=== PATIENT | male | born 1985 | race Caucasian/White ===

== ENCOUNTER 2021-10-18 21:58 | Emergency (ER) | payer OTHER, SELFPAY ==
[2021-10-18 22:00] VITALS: BP 135/96; PULSE 97; RESP 20; TEMP 37.6; O2SAT 97
--- NOTE | 2021-10-18 22:04 | PC.NURSE ---
patient mother and came up to this feature writer and stated that they patient took dayquil and began drinking. When they questioned the patient he stated he did so in an attempt to harm himself. This feature writer asked patient if this occurred today and he began crying and stated it did happen. employment programs analyst is with patient at this time and supercharger repair supervisor was made aware.
--- NOTE | 2021-10-18 22:24 | PC.NURSE ---
Anay Currie- [phone], mother Nizta [phone], girlfriend
[2021-10-18 22:36] LABS: Basophils Percent Auto 0.9 % (0.2-1.2); Eosinophils Absolute Auto 0.2 K/mm3 (0-0.3); Eosinophils Percent Auto 4.3 % (0-4.4); Hematocrit 47.8 % (42.0-52.0); Hemoglobin 15.8 g/dL (14.0-18.0); Immature Granulocyte Absolute 0.01 K/mm3 (0.00-0.031); Immature Granulocyte Percent A 0.2 % (0-0.5); Lymphocytes Absolute Auto 1.57 K/mm3 (0.9-3.2); Lymphocytes Percent Auto 35.4 % (18.3-44.2); Mean Corpuscular HGB Conc 33.1 g/dl (32-36); Mean Corpuscular Hemoglobin 29.7 pg (26-34); Mean Corpuscular Volume 89.8 fl (80-100); Mean Platelet Volume 9.3 fl (7.4-10.4); Monocytes Absolute Auto 0.3 K/mm3 (0.1-0.6); Monocytes Percent Auto 7.4 % (2.6-8.5); Neutrophils Absolute Auto 2.3 K/mm3 (1.3-6.7); Neutrophils Percent Auto 51.8 % (45.5-73.1); Platelet Count Result 289 k/mm3 (150-375); Red Blood Count 5.32 M/mm3 (4.6-6.20); Red Cell Distribution Width 12.4 % (11.5-14.5); White Blood Count 4.4 K/mm3 (4.5-10.0)
[2021-10-18 22:55] LABS: Alanine Aminotransferase 20 U/L (4-50); Alkaline Phosphatase 55 U/L (38-126); Anion Gap 10 mmol/L (8-16); Aspartate Amino Transferase 30 U/L (17-59); Bilirubin,Total 0.3 mg/dL (0.2-1.3); Blood Urea Nitrogen 11 mg/dL (9-20); Calcium 9.2 mg/dL (8.4-10.2); Carbon Dioxide 27 mmol/L (22-30); Chloride 108 mmol/L (98-107); Estimated CRCL calculation 130 ml/min; Estimated Glomerular Filt Rate > 60; Glucose 96 mg/dL (65-110); Sodium 145 mmol/L (137-145)
[2021-10-18 22:56] LABS: Ethanol 163 mg/dL (<10)
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
[2021-10-18 23:13] LABS: SARS-CoV-2 RNA PCR Negative
[2021-10-18 23:28] LABS: Appearance Urine Clear (Clear); Bilirubin Urine Negative (Negative); Blood Urine Negative (Negative); Color Urine Yellow (Yellow); Glucose Urine UA Negative (Negative); Ketones Urine Negative (Negative); Leukocyte Esterase Ur Negative LEU/UL (Negative); Nitrate Urine Negative (Negative); Protein Urine Negative (Negative); Specific Grav Ur 1.025 (1.001-1.035); Urobilinogen Urine 0.2 mg/dL (<2.0); pH Urine 5.5 (5.0-9.0)
[2021-10-18 23:36] LABS: Mucus Urine Moderate /lpf; RBC Urine 0-2 /hpf (0-2); Squamous Epithelial Cell Urine Rare /hpf (Few); WBC Urine 0-3 /hpf
[2021-10-18 23:38] LABS: Add Urine Microscopic? YES
[2021-10-18 23:44] LABS: Amphetamine Screen Urine Negative (Negative); Barbiturate Screen Urine Negative (Negative); Benzodiazepines Screen Urine Negative (Negative); Cannabinoid Screen Urine Positive (Negative); Cocaine Screen Urine Negative (Negative); Methadone Screen Urine Negative (Negative); Opiate Screen Urine Negative (Negative); Phencyclidine Screen Urine Negative (Negative)
[2021-10-19 01:17] VITALS: PULSE 87; RESP 20
[2021-10-19 01:27] VITALS: PULSE 91; RESP 20
[2021-10-19 06:09] VITALS: BP 140/75; PULSE 95; RESP 18; O2SAT 100
== END 2021-10-19 06:12 | disposition home or self-care (01) ==
PROVIDERS: Emergency Provider Emergency Medicine
DX: F33.1 Major depressive disorder, recurrent, moderate (principal); F10.129 Alcohol abuse with intoxication, unspecified; Z20.822 Contact with and (suspected) exposure to COVID-19; Y90.6 Blood alcohol level of 120-199 mg/100 ml
CPT/HCPCS: 36415; 80053; 80307; 81001; 84443; 85025; 94640; 99283; C9803; U0003; U0005

== ENCOUNTER 2023-12-28 15:02 | Emergency (ER) | payer BC, SELFPAY ==
[2023-12-28 15:11] VITALS: BP 155/104; PULSE 95; RESP 18; TEMP 36.8; O2SAT 100
--- NOTE | 2023-12-28 15:16 | ED.LOWEXIN ---
HPI - Extremity Injury (Lower) General Chief Complaint: Extremity Injury, Lower Stated Complaint: Left Foot Injury History of Present Illness HPI Narrative: Patient presents with left great toe pain swelling and tenderness. Patient denies any injury states he has been getting worse over the last 3 days. Patient states he has had increase in acidic foods and increase in beer both the last week. Related Data Allergies Allergy/AdvReac Type Severity Reaction Status Date / Time No Known Allergies Allergy Verified 10/18/21 22:09 Review of Systems Review of Systems: CONSTITUTIONAL: Denies fever, chills, or sweats. EYES: Denies visual changes, redness, or discharge. ENT: Denies rhinorrhea, congestion, sore throat, or otalgia. CARDIOVASCULAR: Denies chest pain, palpitations, or edema. RESPIRATORY: Denies cough or dyspnea. GASTROINTESTINAL: Denies abdominal pain, nausea, vomiting, or diarrhea. GENITOURINARY: Denies dysuria or hematuria. SKIN: Denies rash or itching. MUSCULOSKELETAL: Denies back pain, joint pain, or myalgia. NEUROLOGIC: Denies headache, numbness, or weakness. PSYCHIATRIC: Denies anxiety or depression. PMFSH Comments At time of signature, agree with nursing past medical, surgical, social and family history. There is no relevant family history pertinent to the presenting complaint Exam Narrative: GENERAL: Well-appearing, well-nourished, and in no acute distress. HEAD: Normocephalic, atraumatic. EYES: PERRLA and EOMI. ENT: Nares clear, no rhinorrhea or epistaxis. Mucous membranes moist. NECK: Supple. CHEST: Clear to auscultation. No respiratory distress. HEART: Regular rate and rhythm. No murmur heard. Normal peripheral pulses. ABDOMEN: Soft, nontender, nondistended, normal active bowel sounds. EXTREMITIES: Normal range of motion. No edema. swelling,tender and warmth to left great toe consistent with gout SKIN: Warm, dry, no rash. NEURO: No focal deficits. Alert and oriented x3. Jennifer Coma Scale Eye Opening: Spontaneous 4 [place] Coma Scale Motor: Obeys Commands 6 [place] Coma Scale Verbal: Oriented 5 Jennifer Coma Scale Total 15 Course Course Level of Care: Express Care Visit Vital Signs Vital signs: Vital Signs Temperature 36.8 C 12/28/23 15:11 Pulse Rate 95 12/28/23 15:11 Respiratory Rate 18 12/28/23 15:11 Blood Pressure 155/104 H 12/28/23 15:11 Pulse Oximetry 100 12/28/23 15:11 Oxygen Delivery Room Air 12/28/23 15:11 Temperature 36.8 C 12/28/23 15:11 Pulse Rate 95 12/28/23 15:11 Respiratory Rate 18 12/28/23 15:11 Blood Pressure 155/104 H 12/28/23 15:11 Pulse Oximetry 100 12/28/23 15:11 Oxygen Delivery Room Air 12/28/23 15:11 Discharge Plan Discharge Clinical Impression: Gout Patient Disposition: Home, Self-Care Condition: Stable Instructions: Gout (ED) Additional Instructions: Increase fluids especially water Avoid acidic foods and Beer medications as prescribed follow up with primary care provider in 2 days for re evaluation if any new or worsening of symptoms go to ER immediately Prescriptions: New prednisone 20 mg tablet 40 mg PO DAILY 5 Days Qty: 10 0RF Follow-up/Referrals: PHYSICIAN NOT ON STAFF,NONSTAFF [Primary Care Provider] -
== END 2023-12-28 15:25 | disposition home or self-care (01) ==
PROVIDERS: Emergency Provider Nurse Practitioner Family
DX: M10.9 Gout, unspecified (principal)
CPT/HCPCS: 99213; G0463